=== PATIENT | female | born 1955 | race Hispanic/Latino ===

== ENCOUNTER 2016-06-05 20:09 | Observation (INO) | payer SELFPAY ==
[~2016-06-05] VITALS: Ht 157.5 cm; Wt 75.1 kg
[~2016-06-05 20:09] MED LIST: ASPI-973 PO; ATRV10T PO; CEPH500C PO; DOCU-41 PO; HYDR-4003 PO; IBUP-1827 PO; OXYC1TAB24 PO; vitamin D
[2016-06-05 20:12] VITALS: BP 125/84; PULSE 85; RESP 18; O2SAT 97
--- NOTE | 2016-06-05 21:14 | ED.REPORT ---
HPI-Headache Date of Service Jun 05, 2016 ED Provider: Waldo Still MD Patient is a 61 year old female with a history of hypertension and prior TIA who presents to the ED complaining of a left-sided headache that began 1.5 hours prior to arrival. The patient states that the pain radiates down her left chest and down to her left leg. She states that the bottom of her left foot is burning. Patient also has a small wound on her left rene that she sustained 1 month ago, with the patient reporting that it has not healed well and is causing her significant pain. She denies any numbness or weakness of her extremities. Her daughter has not noticed a new facial droop, but she does have some mild drooping of the left side of her face at baseline from prior TIA. Patient did not have residual left-sided weakness of her arm or leg from her prior TIA. Patient is able to ambulate on her own in the ED. Patient does not frequently have headaches, but that the last time she had a headache like this the patient had a TIA. Her daughter states that the patient also developed shortness of breath at onset of symptoms. Patient is not currently on any blood thinning medications, but was previously on aspirin daily. Patient is Belarusian- speaking, with her daughter assisting with interview. Nursing Notes Stated Complaint: HEADACHE, SHORT OF BREATH Chief Complaint: General Complaint Nursing Notes Reviewed: Yes Allergies: Coded Allergies: hydromorphone (Verified Adverse Reaction, Severe, "passed out", 09/23/15) Scheduled ([vitamin D]) DAILY Aspirin (Aspirin) 81 Mg Tablet 81 MG PO DAILY Atorvastatin (Lipitor) 10 Mg Tab 10 MG PO DAILY Cephalexin (Cephalexin) 500 Mg Capsule 500 MG PO QID Scheduled PRN Docusate Sodium (Colace) 100 Mg Capsule 100 MG PO BID PRN PRN For Constipation Hydrocodone-Acetaminophen 5-325 mg (Hydrocodone-Acetaminophen 5-325 mg) 1 Each Tablet 1-2 TABLET PO Q4H PRN PRN For Pain Ibuprofen (Ibuprofen) 600 Mg Tablet 600 MG PO Q6 PRN PRN For Mild Pain oxyCODONE-Acetaminophen 5-325 mg (oxyCODONE-Acetaminophen 5-325 mg) 1 Each Tablet 1 TAB PO Q4H PRN PRN For Moderate Pain General Time Seen by MD: 21:11 Chief Complaint Headache, Other (left sided chest pain) Hx Obtained From: Patient, Daughter Arrived By: Walk-in Sudden in Onset?: No Onset Occurred: 1 - 4 hours ago Symptom Duration: Since onset Quality: Painful Severity: Current: Moderate Severity: Maximum: Moderate Recent Healthcare: No recent doctor visit, No recent hospitalization Similar Sx Previous: Yes Past Medical History Past Medical History Notes: Past Medical History TIA 2013 Patient claims history of [place] years ago-not verified on review of records not evident on recent cardiac workup. Eval for Chest Pain 07/02/2015 - negative (negative nuclear stress May 2015, normal echo). Reports: GERD, Hyperlipidemia, Hypertension Past Surgical History Cystocele repair June 2015 Family History non-contributory Smoking History Former Smoker Social History Alcohol Use: Denies alcohol use Drug Use: Denies drug use Other Social History: Good social support, Local resident Ambulatory Status Independent Review of Systems Musculoskeletal: Reports: Extremity pain, Denies: Joint pain Neurologic: Reports: Headache, Denies: Numbness, Weakness Complete sys rev & neg: except as marked. Respiratory: Reports: Shortness of breath Cardiovascular: Reports: Chest pain Physical Exam Initial Vital Signs Vital Signs (First) Date Time Temp Pulse Resp B/P Pulse Ox O2 Delivery O2 Flow Rate FiO2 06/05/16 20:12 36.6 85 18 125/84 97 Room Air Initial VS: Reviewed, Vital signs normal ENT: Conjunctiva normal, No scleral icterus Extremities: Vascular intact, Neuro intact Skin: Warm, Dry, No cyanosis Psychiatric: Mood/affect normal, Behavior normal, Normal thought content General/Constitutional: Awake, Alert Head / Eyes: Atraumatic, Normocephalic, PERRL Neck: Supple, Full range of motion Neurologic: Oriented X3, No sensory deficits Focal Weakness: Positive: Lower extremity L, Negative: Lower extremity R, Upper extremity L, Upper extremity R Difficult to assess fluency of speech due to residual deficits. Longstanding left-sided facial droop, no increase per daughter. Bilateral nystagmus, no change per daughter. Otherwise cranial nerves are intact. Respiratory / Chest: Breath sounds NL, Breath sounds = bilat, No respiratory distress, No rales, No rhonchi, No wheezing Cardiovascular: Heart rate NL, Regular rhythm, Heart sounds NL, No murmurs Abdomen: Soft, Non-tender Upper Extremity / MS: Neurologic intact, Vascular intact Lower Extremity / Pelvis / MS: No deformity, Neurologic intact, Vascular intact 0.5cm scabbed nonhealing superficial ulcer to the left rene with surrounding tenderness. Interpretation & Diagnostics Lab Results Interpretation Result Diagram: 06/05/16211406/05/162114 Test 06/05/16 21:15 06/05/16 22:32 White Blood Count 5.1th/mm3 (3.8-10.1) Red Blood Count 4.19mil/mm3 (3.90-5.20) Hemoglobin 12.6g/dL (12.0-15.6) Hematocrit 37.0% (35.0-46.0) Mean Corpuscular Volume 88.3fL (81-100) Mean Corpuscular Hemoglobin 30.1pg (27.0-35.0) Mean Corpuscular Hemoglobin Concent 34.1% (32.0-37.0) Red Cell Distribution Width 12.8% (12.3-15.4) Platelet Count 288bil/L (150-400) Neutrophils (%) (Auto) 43.3% (40-74) Lymphocytes (%) (Auto) 45.1% (14-46) Monocytes (%) (Auto) 7.5% (4-12) Eosinophils (%) (Auto) 3.5% (0-5) Basophils (%) (Auto) 0.6% (0-3) D-Dimer 1.0mg/L (<0.50) Sodium Level 138mEq/L (134-144) Potassium Level 4.0mEq/L (3.5-5.2) Chloride Level 100mEq/L (97-108) Carbon Dioxide Level 23mmol/L (18-29) Blood Urea Nitrogen 11mg/dL (8-27) Creatinine 0.51mg/dL (0.57-1.00) Estimat Glomerular Filtration Rate 176mL/min (>59) Glucose Level 107mg/dL (60-99) Calcium Level 9.2mg/dL (8.5-10.1) Magnesium Level 1.9mg/dL (1.6-2.6) Total Bilirubin 0.3mg/dL (0.0-1.2) Aspartate Amino Transf (AST/SGOT) 24U/L (0-50) Alanine Aminotransferase (ALT/SGPT) 16U/L (0-32) Alkaline Phosphatase 84U/L (25-165) Troponin T 0.010ug/L (0.0-0.011) Total Protein 7.6g/dL (6.4-8.4) Albumin 4.2g/dL (3.4-5.0) Hold Perry Top Tube Received (Received) Urine Color Straw (YELLOW) Urine Appearance Clear (CLEAR,HAZY) Urine pH 7.0 (5.0-8.0) Urine Specific Foley 1.010 (1.003-1.035) Urine Protein Negativemg/dL (NEG,TRACE) Urine Glucose (UA) Negativemg/dL (NEGATIVE) Urine Ketones Negativemg/dL (NEGATIVE) Urine Occult Blood Trace (NEGATIVE) Urine Nitrite Negative (NEGATIVE) Urine Bilirubin Negative (NEGATIVE) Urine Urobilinogen Normalmg/dL (NORMAL) Urine Leukocyte Esterase Large (NEGATIVE) Urine RBC 0-2/hpf (0-2) Urine WBC 6-10/hpf (0-5) Urine Epithelial Cells Few/hpf (NONE-MOD) Urine Crystals None seen (NONE SEEN) Urine Bacteria Few/hpf (NONE-FEW) Urine Hyaline Casts None/lpf (NONE) Urine Granular Casts None seen (NONE SEEN) Urine Waxy Casts None seen (NONE SEEN) Urine Red Blood Cell Casts None seen (NONE SEEN) Urine White Blood Cell Casts None seen (NONE SEEN) Urine Mucus None seen (None Seen) Urine Trichomonas None seen (NONE SEEN) Urine Yeast None (NONE SEEN) Urinalysis Comment Urine Culture Reflexed Indicated Lab values outside NL range: no clinical significance. Lab Results Interpretation: D-dimer is elevated ECG Interpretation ECG Interpretation: Sinus rhythm, Rate 68 Abnormal R-wave progression, early transition Probable left ventricular hypertrophy Nonspecific T abnormalities, anterior leads Time: 21:28 Interpreted by: ED physician Normal ECG Interpretation: No acute ischemic changes, No change from prior ECGs (08/03/2015) X-Ray Chest Interpretation Chest Xray Interpretation: Impression: No acute cardiopulmonary process. View: Portable Interpretation / Wet Read by: Wet read ED physician CT Head Interpretation IMPRESSION: No acute intracranial disease process. Dictated by: Jenna Mcneal MD, PhD on 06/05/2016 at 21:45 Approved by: Jenna Mcneal MD, PhD on 06/05/2016 at 21:48 Study: Head CT no contrast Interpretation / Wet Read by: Interpret - Radiologist CT Chest Interpretation CONCLUSION: No evidence of pulmonary embolism or dissection. Radiologist: David Valladares MD 06/06/2016 - 12:56:51 AM PST Study type: CT pulm angiogram Interpretation / Wet Read by: Interpret - Radiologist Re-Eval/Medical Decision Med Decision/Clinical Course 21-year-old female with constellation of symptoms beginning sometime in the last 2-3 hours. Her presentation is a bit confusing because of her pre- existing neuro deficits including nystagmus, left facial droop, and some possible left-sided weakness from a previous stroke. She definitely has new left leg weakness and pain along her entire left side and a left-sided headache. CT examination is negative. Evaluation of her left-sided chest pain shows normal EKG, normal chest x-ray, elevated d-dimer but normal chest CT angiogram. She has a urinary tract infection. She was treated with Rocephin. She had previously stopped her aspirin therapy for a surgical procedure and had restarted it. She was given aspirin 160 mg here in the emergency room. Her case was discussed with Dr. Evangelista and she will be admitted to the hospitalist service. TPA was considered but the diagnosis of embolic stroke is not well-established and her symptoms are fairly minimal, so was elected not to do tPA in this case. Source of Hx: Old records Re-Evaluation/Progress #1: Time of Eval: 22:25 )( Patient Status: Condition improved Re-Evaluation/Progress Note: Informed that patient and her daughter that the CT scan was negative. No acute problems on labs, EKG, or chest x-ray. Requesting urine. Re-Evaluation/Progress #2: Time of Eval: 23:03 )( Patient Status: Condition improved Re-Evaluation/Progress Note: Rechecked the patient. She was informed that she has a UTI on x-ray. Patient states that her headache and chest pain is mildly improved. Will order additional tests. And discuss possible admission with hospitalist. Patient no longer takes an aspirin daily and was informed to start taking this again. Re-Evaluation/Progress #3: Time of Eval: 23:57 Re-Evaluation/Progress Note: D-dimer was positive and she will need a CT scan of her lungs. Re-Evaluation/Progress #4: Time of Eval: 01:45 )( Patient Status: Condition improved Re-Evaluation/Progress Note: Informed the patient and her daughter that CT was negative. Patient will be admitted to the hospital for further care and evaluation. Patient understands and agrees with this plan. All questions were addressed. Consultation : Referral / Consult Name: Rony Evangelista MD Consulted With: Hospitalist Call Returned at: 01:49 Claims Supervisor: Will see patient, Agrees with eval, Agrees with plan, Referred to other consult Note: Spoke with Dr Evangelista, hospitalist, who agrees to accept admit. Counseled Regarding: Diagnosis, Lab results, Need for admission Discharge & Departure Impression: Primary Impression: TIA (transient ischemic attack) Transient cerebral ischemia type: unspecified Qualified Code: G45.9 - Transient cerebral ischemic attack, unspecified Additional Impressions: Urinary tract infection Urinary tract infection type: acute cystitis Hematuria presence: without hematuria Qualified Code: N30.00 - Acute cystitis without hematuria Left-sided headache Left sided chest pain Disposition: ADMITTED TO HOSPITAL Discharge Condition All VS Reviewed: Yes Condition: Stable Patient Instructions: Urinary Tract Infection in Women (ED) Referrals: OTHER,PHYSICIAN (PCP) Scribe Attestation Portions of this note were transcribed by Lor Luke. I, Dr. Still personally performed the history, physical exam and medical decision-making; I reviewed and confirmed the accuracy of the information in the transcribed note. Signed by: Nila Charlton, 06/06/2016 0152 copies to: PHYSICIAN Cheko TSE Howard L MD Jun 05, 2016 21:14 Lor Luke Jun 05, 2016 21:29
[2016-06-05 21:37] LABS: BASOPHILS % (AUTO) 0.6 % (0-3); EOSINOPHILS % (AUTO) 3.5 % (0-5); MONOCYTES % (AUTO) 7.5 % (4-12); Mean Corpuscular Hemoglobin 30.1 pg (27.0-35.0); Mean Corpuscular Volume 88.3 fL (81-100); NEUTROPHILS % (AUTO) 43.3 % (40-74); Platelet Count 288 bil/L (150-400)
--- NOTE | 2016-06-05 21:49 | DRSVH ---
PROCEDURE: CT BRAIN WITHOUT CONTRAST ([id number]) INDICATIONS: left side headache and body pain, Hx stroke TECHNIQUE: Noncontrast 4.5 mm thick angled axial sections acquired from the foramen magnum to the vertex, with c oronal reformats. COMPARISON: None. FINDINGS: Image quality: Excellent. CSF spaces: Basal cisterns are patent. No extra-axial fluid collections. Ventricles are normal in size and shape. Brain: No midline shift. No intracranial masses or hemorrhage. Pereira-white matter interface is norm al. Skull and face: Chronic appearing left nasal bone fracture noted. Calvarium is intact, without susp icious lesions. Sinuses: Mucous retention cyst versus polyps are noted in the maxillary sinuses bilaterally. The ma stoids are clear. IMPRESSION: No acute intracranial disease process. Dictated by: Jenna Mcneal MD, PhD on 06/05/2016 at 21:45 Approved by: Jenna Mcneal MD, PhD on 06/05/2016 at 21:48
[2016-06-05 21:59] LABS: TROPONIN T 0.01 ug/L (0.0-0.011)
[2016-06-05 22:11] LABS: Magnesium 1.9 mg/dL (1.6-2.6)
[2016-06-05 22:56] LABS: APPEARANCE,URINE CLEAR (CLEAR,HAZY); COLOR,URINE STRAW (YELLOW)
[2016-06-05 22:57] LABS: OCCULT BLOOD,URINE TRACE (NEGATIVE); UROBILINOGEN,URINE NORMAL (NORMAL)
[2016-06-05 23:51] VITALS: BP 99/46; PULSE 62; RESP 21; O2SAT 95
[2016-06-06] VITALS (8 sets, daily range): BP systolic 103–123; BP diastolic 58–83; PULSE 59–66; RESP 16–22; O2SAT 96–98
[2016-06-06] MEDS ORDERED: cefTRIAXone Inj 2,000 MG in Dextrose 5% Minibag Plus 50 ML IV ONE (00:20)
[2016-06-06] MEDS ORDERED: 0.9% Sodium Chloride 1,000 ML IV ONE (01:50)
[2016-06-06] MEDS ORDERED: 0.9% Sodium Chloride 1,000 ML IV SCH (03:06)
[2016-06-06] MEDS ORDERED: Polyethylene Glycol (PEG) 17 Gm Powder PO PRN (03:10)
[2016-06-06] MEDS ORDERED: Labetalol 5 mg/mL 4 mL Inj IVPUSH PRN (03:10)
[2016-06-06] MEDS ORDERED: Alum-Mag Hydrox-Simeth 30 mL Suspension PO PRN (03:10)
[2016-06-06] MEDS ORDERED: Ondansetron 2 mg/mL 2 mL Inj IV PRN (03:10)
[2016-06-06 03:37] LABS: INR 0.92 ratio
--- NOTE | 2016-06-06 03:42 | PCM.HPMED ---
Subjective Date of Service Jun 06, 2016 Primary Provider: Admitting Physician: [facility] Attending Physician: Admit Status: From the Emergency Department Chief Complaint: Head ache and SOB History of Present Illness: This is a pleasant 61 Y/O Congolese-speaking F with a history of HTN and prior TIA (no current blood thinner or anticoagulant medication) who presented to the ED complaining of a sharp 6-7 out of 10 left-sided headache pain onset late last night 06/05/2016. Pain reportedly radiates down her left chest and down to her left leg. Associated symptoms include burning sensation on plantar surface of left foot. Associated symptoms include nausea, chest pressure rated 6-7 out of 10, and shortness of breath. Patient also has a small nonhealing wound on her left rene that she sustained 1 month ago which causes significant pain. Patient daughter states that she relates her leg pain to the small wound on the anterior rene. Patient reports residual left-sided upper/lower extremity weakness from prior TIA. Her daughter has not noticed worsening of patient's mild left-sided facial droop which is her baseline from prior TIA. Patient was able to ambulate on her own in the ED. Patient denies frequent headaches. However last time she had a headache like this the patient had a TIA. Her daughter states that the patient also developed shortness of breath at onset of symptoms. Patient denies fever chills vomiting sweats sinus pressure cough sore throat abdominal pain constipation, dysuria. Vital signs in ED temperature 36.6, pulse 85, blood pressure 125/84, respirations 18, 97% on room air. Vitals: Pulse 62, blood pressure 99/46, 95% on room air, respirations 21. Patient is found to have urinary tract infection in ED and was started on ceftriaxone CT of head was done and showed no acute intracranial process. CT chest was done and showed no evidence of pulmonary embolism or dissection. Chest x-ray was done and showed no acute cardiopulmonary process. Hemogram: within normal limits Chemistry panel: Within normal limits, troponin 0.00 D-dimer 1.0 high Review of Systems: Comprehensive review of systems was conducted and found to be negative except for what is mentioned in the history of present illness. Allergies Coded Allergies: hydromorphone (Verified Adverse Reaction, Severe, "passed out", 09/23/15) Home Medications Patient currently is not on any medications. [facility] TIA 2013 Patient claims history of [place] years ago-not verified on review of records not evident on recent cardiac workup. Eval for Chest Pain 07/02/2015 - negative (negative nuclear stress May 2015, normal echo). Reports: GERD, Hyperlipidemia, Hypertension Surgical History Cystocele repair June 2015 Family History Noncontributory No history of stroke, diabetes, coronary artery disease, or cancer Social History Hx Alcohol Use: Yes Hx Substance Use: No Hx Tobacco Use: Yes Smoking Status: Former Smoker Living Arrangement: with Family Exam Vital Signs Vital Sign - Last Date Time Temp Pulse Resp B/P Pulse Ox O2 Delivery O2 Flow Rate FiO2 06/05/16 23:51 62 21 99/46 95 Room Air 06/05/16 20:12 36.6 Intake and Output 06/05/16 06/05/16 06/06/16 Cumulative From/Thru 15:00 23:00 07:00 06/06/16 01:58 - 06/06/16 01:58 Intake Total 1000 ml 1000 ml Balance 1000 ml 1000 ml Intake IV Total 1000 ml 1000 ml Lab and Diagnostics Result Diagram: 06/05/16211406/05/162114 X-Rays, CTs and MRIs Chest Xray Interpretation: Impression: No acute cardiopulmonary process. View: Portable Interpretation / Wet Read by: Wet read ED physician CT Head Interpretation IMPRESSION: No acute intracranial disease process. Dictated by: Jenna Mcneal MD, PhD on 06/05/2016 at 21:45 Approved by: Jenna Mcneal MD, PhD on 06/05/2016 at 21:48 Study: Head CT no contrast Interpretation / Wet Read by: Interpret - Radiologist CT Chest Interpretation CONCLUSION: No evidence of pulmonary embolism or dissection. Radiologist: David Valladares MD 06/06/2016 - 12:56:51 AM PST Study type: CT pulm angiogram Interpretation / Wet Read by: Interpret - Radiologist Assessment & Plan This is a pleasant 61 Y/O Congolese-speaking F with a history of HTN and prior TIA who presented to the ED complaining of a left-sided headache late last night 06/05/2016. Pain reportedly radiates down her left chest and down to her left leg. Associated symptoms include burning sensation on plantar surface of left foot. Patient was admitted for TIA rule out. # Acute TIA, Present on Admission, active -CT Head Non contrast negative for acute intracranial process -EKG sinus rhythm rate of 68, abnormal R-wave progression, early transition probably left ventricular hypertrophy, nonspecific T-wave abnormalities anterior leads no apparent acute ischemic changes noted from prior ECG on 2015 -Thrombolysis (Altaplase) patient was not a candidate. -Admit for TIA/stroke rule out and observation -Aspirin 325 mg daily + Plavix 300 mg Loading dose then 75 mg daily -Start Statin Tx -Vital signs + Neuro checks Q 15 min for 2 hr, then Q 30 min for 6 hr, then Q 60 min up to 24 hours. -MRA Brain to follow to R/O hemorrhagic conversion. -Continuous Cardiac Monitoring -IV fluids if needed to manage any volume depletion/electrolytes -Permissive HTN -BP goal if not on thrombolysis is to treat only if > 220 systolic or 120 Diastolic -NIHSS score was difficult to assess on patient -Elevate Head of Bed 30 degrees #Acute chest pain, present admission, active -Chest X-ray no acute cardiopulmonary process -CT chest: Showed no evidence of pulmonary embolism or dissection -EKG sinus rhythm rate of 68, abnormal R-wave progression, early transition probably left ventricular hypertrophy, nonspecific T-wave abnormalities anterior leads no apparent acute ischemic changes noted from prior ECG on 2015 -Troponin 0.010 -We will continue to monitor # Urinary tract infection, was on admission, active -Patient denies dysuria -UA positive for trace blood leukocyte esterase large, urine bacteria few -Urine culture pending -1 g ceftriaxone in ED -We will continue ceftriaxone Chronic problems GERD, -IV Pepcid Hyperlipidemia, -Start atorvastatin 40 mg Hypertension -Permissive of hypertension given TIA Disposition: Admitted to in patient service with expected length of stay greater than 2 days, secondary to severity of presenting symptoms, treatment plan, complexity of clinical work up, and risk of adverse events. CODE STATUS: Full code PCP: William Greene DVT/PE prophylaxis: Subcutaneous heparin Pain Evaluation: Adequate Pain Control VTE Prophylaxis: Sub-Q Heparin (Unfractionated) Resuscitation Status: CPR: Attempt Resuscitation Attending Statement The patient was seen and examined together with Dr. Trejo on 06/06 and I agree with the history, exam and plan as outlined in the note above. Rudy Trejo DO Jun 06, 2016 02:31 Rony Evangelista MD Jun 06, 2016 04:32
--- NOTE | 2016-06-06 05:41 | NUR ---
Admit to room 3016 with c/o left sided pain and chest pressure, TIA, UTI. 7/10 pain left arm/leg/head/chest. VSS temp 36.4 bp 106/65 p 62 98% O2 SAT on RA. Welsh speaking only. Used [employer] on stick for admission and family available to translate in room. Currently NPO with POC on whiteboard and oriented to room.
--- NOTE | 2016-06-06 05:45 | NUR ---
Med Rec currently not taking any medications. Verified allergy and no current pharmacy.
[2016-06-06 07:51] LABS: Mean Corpuscular Hemoglobin 29.8 pg (27.0-35.0)
[2016-06-06] MEDS: Heparin 5,000 Unit/mL Inj SUBQ SCH ×2 (08:05→16:27)
--- NOTE | 2016-06-06 08:28 | DRSVH ---
PROCEDURE: X-RAY CHEST ONE VIEW, PORTABLE ([id number]) INDICATIONS: chest pain TECHNIQUE: One view of the chest was acquired. COMPARISON: 08/03/2015 FINDINGS: Surgical changes and devices: None. Lungs and pleura: No pleural effusions or pneumothorax. Lungs are clear. Mediastinum: Mediastinal contours appear normal. Heart size is normal. Bones and chest wall: No suspicious bony lesions. Overlying soft tissues appear unremarkable. IMPRESSION: No acute cardiopulmonary abnormality Dictated by: Kem Lantigua M.D. on 06/06/2016 at 8:27 Approved by: Kem Lantigua M.D. on 06/06/2016 at 8:28
[2016-06-06] MEDS ORDERED: Famotidine Inj 20 MG in IV Premix 1 EACH IV SCH (08:30)
--- NOTE | 2016-06-06 09:32 | DRSVH ---
PROCEDURE: CT ANGIO CHEST PULMONARY EMBOLISM ([id number]) INDICATIONS: left chest pain, elev dimer TECHNIQUE: After the administration of intravenous contrast, 2 mm thick sections acquired from the pulmonary api iglesia to the posterior costophrenic angles. 3-dimensional maximum intensity projection (MIP) coronal a nd sagittal reformats were then acquired through the thorax. For radiation dose reduction, the follo wing was used: automated exposure control, adjustment of mA and/or kV according to patient size. COMPARISON: None. FINDINGS: Image quality: Excellent. Pulmonary arteries: Pulmonary arteries are normal in size, and demonstrate no intraluminal filling d efects to suggest central pulmonary embolism. Lungs and pleura: Atelectasis noted in the deep inner portion of the lung bases. No pleural effusions or pneumothorax. Central and peripheral airways are patent. Mediastinum: Heart size is normal, without pericardial effusion. No mediastinal or hilar adenopathy . Thoracic aorta is normal in caliber and enhancement. Esophagus is normal in caliber. Small hiatal hernia is noted. Bones and chest wall: No suspicious bony lesions. Ribs and thoracic spine appear intact throughout. Thyroid gland is within normal limits. No axillary or supraclavicular adenopathy. Abdomen: Visualized upper abdominal solid organs appear normal in the early arterial phase of enhanc ement. IMPRESSION: 1. No pulmonary embolus. 2. Small hiatal hernia. Dictated by: Jenna Mcneal MD, PhD on 06/06/2016 at 9:26 Approved by: Jenna Mcneal MD, PhD on 06/06/2016 at 9:30
--- NOTE | 2016-06-06 11:00 | NUR ---
Social Work: Brief Note Data: Pt is a 61 y/o female admitted for TIA, UTI. Pt's PCP is Supriya, pt's insurance is self pay. DOLL WIG HACKLER met with pt with casino enforcement agent and confirmed self pay status. Pt accepted the [employer] Application in both Serbian and Czech so that her daughter can assist her with filling it out. DOLL WIG HACKLER spoke with PT who states that pt will likely either need SNF or 24/7 care at d/c. DOLL WIG HACKLER will meet with pt to discussed d/c planning later today as she is currently working with [facility] DOLL WIG HACKLER will continue to follow. Assessment: Pt who is independent at baseline. Plan: Pt will either d/c home with assistance from family or private pay caregiving or private pay SNF. DOLL WIG HACKLER will continue to follow. ROGELIO Goldman
--- NOTE | 2016-06-06 11:07 | DRSVH ---
PROCEDURE: MRI STROKE PROTOCOL ([id number]) Pre- and post-contrast brain MRI, non-contrast brain MR angiogram, pre- and postcontrast neck MR phu ogram INDICATIONS: headache, left sided weakness TECHNIQUE: Brain: Noncontrast axial T1 spin echo, axial T2 fast spin echo, sagittal and axial FLAIR, coronal T2 fast spin echo, axial gradient echo, axial diffusion and ADC through the brain. After the administr ation of contrast, axial 3D VIBE of the cranial vasculature and brain. Brain MRA: Non-contrast 3-D time of flight MR angiogram, with multiple zxmppaj-huxpjzgft-tphvwvkhss (MIP) reformats performed. Neck MRA: Axial and sagittal TruFISP through the neck. Coronal dynamic MR angiogram during administ ration of contrast in the arterial and venous phases, with 3-dimenstional sbndkcx-myrepifgx-mzenscbdv n (MIP) reformats constructed from subtraction images. COMPARISON: None. FINDINGS: Image quality: Excellent. BRAIN: CSF spaces: Ventricles are normal in size and shape. Basal cisterns are patent. No extra-axial flu id collections. Brain: No intracranial bleeds or mass effects. Diffuse bilateral white matter signal changes are pre sent, statistically representing chronic microvascular ischemic disease. Pereira-white matter interface is normal. Diffusion weighted images show no acute ischemic insults. Brainstem appears normal. Nor mal intravascular flow voids are present. No abnormal intracranial enhancement. Skull and face: Calvarial marrow signal is normal. Orbits appear normal. Sinuses: Mild to moderate bilateral mucus retention cysts or polyps within the maxillary sinuses.. BRAIN MR ANGIOGRAM: Anterior circulation: Intracranial internal carotid arteries are normal in size and enhancement. Th e flow within the paired anterior cerebral arteries is normal and symmetric. The flow within the mid dle cerebral arteries is normal and symmetric. The anterior communicating artery is seen. No stenos es, occlusions, or aneurysms. Posterior circulation: The visualized portions of the vertebral arteries demonstrate normal caliber, and join to form a normal appearing basilar artery. The flow within the posterior cerebral arteries is normal and symmetric. No stenoses, occlusions, or aneurysms. NECK MR ANGIOGRAM: Carotids: Great vessels demonstrate a conventional anatomy as they arise from the aortic arch. The origins of the common carotid arteries appear patent. There is a tortuous right internal carotid nelson ry. The bifurcation regions appear normal bilaterally. The internal carotid arteries demonstrate nor mal course and caliber. Posterior circulation: The origins of the vertebral arteries appear patent. More superior portions of both vertebral arteries demonstrate normal course and caliber, and join to form a normal appearing basilar artery. Miscellaneous: Subclavian arteries appear patent. Pre-contrast images through the neck show no soft tissue abnormalities. IMPRESSION: BRAIN MRI: No evidence of acute ischemia. Mild/moderate bilateral maxillary sinus disease. Few scattered mild white matter signal changes statistically representing age-related chronic microva scular ischemic disease. BRAIN MR ANGIOGRAM: Negative examination NECK MR ANGIOGRAM: No focal ICA stenosis. The estimate of stenosis included in the report of the imaging study was calculated using the NASCET method Dictated by: Elie Pelaez M.D. on 06/06/2016 at 10:22 Approved by: Elie Pelaez M.D. on 06/06/2016 at 11:07
--- NOTE | 2016-06-06 11:14 | NUR ---
Evaluation completed. Please go to "Notes" then click on "Assessments and Notes" (bottom left corner of screen). Then select appropriate discipline tab on top of screen.
--- NOTE | 2016-06-06 12:46 | NUR ---
Social Work: Readiness for d/c Data: Pt is on day 1 of hospitalization. EMR reviewed. states pt likely to d/c today. PT was initially thinking SNF may be appropriate but upon further examination they are recommending HH and a walker at this time. VP [facility] GENERAL COUNSEL met with pt to discuss d/c planning. Pt states that she lives with her teenage grandson on the second floor of an apartment building where she uses a cane at times. She gets up the stairs fine while holding the railing. Pt states that she does not drive but takes the bus when needed or walks. She states that she has no hx of HH or SNF, no LTC or VA benefits. She states she does not have a DPOA and declined information. Pt states her daughter can transport her home when time for d/c. VP [facility] GENERAL COUNSEL explained PT recommendations of HH and a walker. VP & GENERAL COUNSEL explained that HH would be private pay cost, pt declined this. VP & GENERAL COUNSEL asked if pt can afford a front wheel walker, estimated to be about $100 to own. Pt states she cannot. VP & GENERAL COUNSEL gave pt information for the [employer], their phone number and hours. Pt states she will ask her daughter to assist her with this. Assessment: Pt who is independent at baseline. Plan: Pt will d/c home via POV with daughter, likely today. Pt declining HH and accepted information to get a loaned FWW. No further d/c planning needs at this time. [facility] GENERAL COUNSEL will continue to follow if needs arise. ROGELIO Goldman
--- NOTE | 2016-06-06 15:29 | NUR ---
Pt. screened. No OT needs. DC order.
--- NOTE | 2016-06-06 16:36 | DRSVH ---
PROCEDURE: MRI LUMBAR SPINE WITHOUT CONTRAST ([id number]) INDICATIONS: Back pain, left leg numbness TECHNIQUE: Noncontrast sagittal T1 spin echo and T2 fast echo, sagittal STIR, axial T1 and T2 fast spin echo thr ough the lumbar spine. In cases with scoliosis, additional coronal T2 fast spin echo may be performe d. COMPARISON: None. FINDINGS: Image quality: Excellent. Alignment and Curvature: There is grade I L5 on S1 anterolisthesis. There is otherwise normal bony a lignment. Bone Marrow: Marrow is of normal overall signal. No acute vertebral body compression fractures. Spinal Cord: Conus medullaris terminates at the T12 level. Visualized cord demonstrates normal sign al and size. Paraspinous Soft Tissues: No paravertebral masses. Small Tarlov cysts are present at L2-3. L1-L2: Mild disc desiccation and height loss. Broad-based disc bulge. No canal stenosis. No neural fo raminal narrowing. L2-L3: Broad-based disc bulge. Mild disc desiccation and height loss. No canal stenosis. Mild facet a nd ligamentum flavum hypertrophy. No foraminal stenosis. L3-L4: Mild disc desiccation and height loss. Broad-based disc bulge. Mild facet and ligamentum flavu m hypertrophy. No canal stenosis. No neural foraminal stenosis. L4-L5: Disc desiccation and height loss. Broad-based disc bulge. Mild facet and ligamentum flavum hyp ertrophy. No canal stenosis. No foraminal narrowing. L5-S1: Anterolisthesis. Moderate disc desiccation and height loss. Severe facet and ligamentum flavum hypertrophy. No canal stenosis. Moderate bilateral foraminal narrowing with flattening of the bilate ral exiting nerve roots. These findings are more severe on the left. IMPRESSION: 1. Disc desiccation and height loss throughout the lumbar spine mild to moderate in degree. 2. No canal stenosis or disc herniation. 3. Moderate bilateral L5-S1 foraminal narrowing with flattening of the exiting nerve roots. These fin dings are more severe on the left on the right. It is unclear whether this may be contributory to the patient's left leg numbness. 4. L5-S1 spondylolisthesis. Dictated by: Aida Hu M.D. on 06/06/2016 at 16:27 Approved by: Aida Hu M.D. on 06/06/2016 at 16:34
[2016-06-06] MEDS ORDERED: ATOR20TA65 PO (16:54)
--- NOTE | 2016-06-06 17:02 | PCM.DIMED ---
Discharge Instructions Date of Service Jun 06, 2016 Dates of Hospitalization Jun 06, 2016 at 02:06 Discharge Diagnosis Discharge Diagnosis # Acute transient left-sided headache of unclear etiology, present on admission. Resolved. # Acute on chronic pain, numbness and paresthesia of left leg, present on admission. Improved. - Unclear etiology but possibly due lumbar spine stenosis vs less likely transient ischemic attack (TIA). # Chronic hyperlipidemia, present on admission - Cholesterol 203, LDL 142 # Acute chest pain, reproducible with palpation, present admission, improved. - Likely musculoskeletal in origin but need to followup with primary care provider as soon as possible for consideration of echocardiogram which you deferred during this hospitalization. # Urinary tract infection, present prior to admission, active - Followup with primary care provider for final culture result # Hypertension. chronic. stable Diet Low fat, Low Sodium, Heart Healthy Activity No restrictions Call your provider Fever or Chills, Shortness of breath, Bleeding, Chest pain, Weakness (unilateral ) Patient Instructions Seek immediate medical attention if any new or worsening signs or symptoms occur. Follow-up plan 1. Followup with your primary care provider in 1-5 days Follow-up Provider: [facility] Raymond Lynch Jun 06, 2016 17:02
--- NOTE | 2016-06-06 17:47 | NUR ---
Discharge Patient given discharge orders. Patient given medication list with written and verbal explanation when next dose is due. Patient given follow up information. Patient given hard copy of script. Patient left with all belongings. Family in room at time of discharge. Patient wheeled to main entrance in wheelchair. IV's removed fully intact and asymptomatic.
--- NOTE | 2016-06-06 19:35 | PCM.DC.MED ---
Discharge Summary Date of Service Jun 06, 2016 Dates of Hospitalization Date of Hospital Admission Jun 06, 2016 at 02:06 Date of Discharge: Jun 06, 2016 Providers: Admitting Physician: Rony Evangelista MD [facility] Rony Evangelista MD Diagnosis at Time of Discharge Diagnosis at Time of Discharge # Acute transient left-sided headache of unclear etiology, present on admission. Resolved. # Acute on chronic pain, numbness and paresthesia of left leg, present on admission. Improved. - Unclear etiology but possibly due lumbar spine stenosis vs less likely transient ischemic attack (TIA). # Chronic hyperlipidemia, present on admission - Cholesterol 203, LDL 142 # Acute chest pain, reproducible with palpation, present admission, improved. - Likely musculoskeletal in origin but need to followup with primary care provider as soon as possible for consideration of echocardiogram which you deferred during this hospitalization. # Urinary tract infection, present prior to admission, active - Followup with primary care provider for final culture result # Hypertension. chronic. stable Procedures XRay, CTs & MRIs Date of Service: 06/06/16 1150 PROCEDURE: MRI LUMBAR SPINE WITHOUT CONTRAST ([id number]) IMPRESSION: 1. Disc desiccation and height loss throughout the lumbar spine mild to moderate in degree. 2. No canal stenosis or disc herniation. 3. Moderate bilateral L5-S1 foraminal narrowing with flattening of the exiting nerve roots. These findings are more severe on the left on the right. It is unclear whether this may be contributory to the patient's left leg numbness. 4. L5-S1 spondylolisthesis. Dictated by: Aida Hu M.D. on 06/06/2016 at 16:27 Approved by: Aida Hu M.D. on 06/06/2016 at 16:34 Date of Service: 06/06/16 0726 PROCEDURE: MRI STROKE PROTOCOL ([id number]) Pre- and post-contrast brain MRI, non-contrast brain MR angiogram, pre- and postcontrast neck MR angiogram IMPRESSION: BRAIN MRI: No evidence of acute ischemia. Mild/moderate bilateral maxillary sinus disease. Few scattered mild white matter signal changes statistically representing age- related chronic microvascular ischemic disease. BRAIN MR ANGIOGRAM: Negative examination NECK MR ANGIOGRAM: No focal ICA stenosis. The estimate of stenosis included in the report of the imaging study was calculated using the NASCET method Dictated by: Elie Pelaez M.D. on 06/06/2016 at 10:22 Approved by: Elie Pelaez M.D. on 06/06/2016 at 11:07 Date of Service: 06/06/16 0000 PROCEDURE: CT ANGIO CHEST PULMONARY EMBOLISM ([id number]) IMPRESSION: 1. No pulmonary embolus. 2. Small hiatal hernia. Dictated by: Jenna Mcneal MD, PhD on 06/06/2016 at 9:26 Approved by: Jenna Mcneal MD, PhD on 06/06/2016 at 9:30 Date of Service: 06/05/162122 PROCEDURE: CT BRAIN WITHOUT CONTRAST ([id number]) IMPRESSION: No acute intracranial disease process. Dictated by: Jenna Mcneal MD, PhD on 06/05/2016 at 21:45 Approved by: Jenna Mcneal MD, PhD on 06/05/2016 at 21:48 Brief History This is a pleasant 61 Y/O Latvian-speaking F with a history of HTN and prior TIA (no current blood thinner or anticoagulant medication) who presented to the ED complaining of a sharp 6-7 out of 10 left-sided headache pain onset late last night 06/05/2016. Pain reportedly radiates down her left chest and down to her left leg. Associated symptoms include burning sensation on plantar surface of left foot. Associated symptoms include nausea, chest pressure rated 6-7 out of 10, and shortness of breath. Patient also has a small nonhealing wound on her left rene that she sustained 1 month ago which causes significant pain. Patient daughter states that she relates her leg pain to the small wound on the anterior rene. Patient reports residual left-sided upper/lower extremity weakness from prior TIA. Her daughter has not noticed worsening of patient's mild left-sided facial droop which is her baseline from prior TIA. Patient was able to ambulate on her own in the ED. Patient denies frequent headaches. However last time she had a headache like this the patient had a TIA. Her daughter states that the patient also developed shortness of breath at onset of symptoms. Patient denies fever chills vomiting sweats sinus pressure cough sore throat abdominal pain constipation, dysuria. Vital signs in ED temperature 36.6, pulse 85, blood pressure 125/84, respirations 18, 97% on room air. Vitals: Pulse 62, blood pressure 99/46, 95% on room air, respirations 21. Patient is found to have urinary tract infection in ED and was started on ceftriaxone CT of head was done and showed no acute intracranial process. CT chest was done and showed no evidence of pulmonary embolism or dissection. Chest x-ray was done and showed no acute cardiopulmonary process. Hemogram: within normal limits Chemistry panel: Within normal limits, troponin 0.00 D-dimer 1.0 high Hospital Course # Acute transient left-sided headache of unclear etiology, present on admission. Resolved. - workup including CT brain and MRI negative. # Acute on chronic pain, numbness and paresthesia of left leg, present on admission. Improved. - Unclear etiology but possibly due lumbar spine stenosis vs less likely transient ischemic attack (TIA). - brain imaging negative as noted above - Lumbar spine MRI without obvious cause although suggest lumbar spine stenosis - Echocardiogram was ordered but patient wishes to have this study done as outpatient and does not want to stay over night for this test. will defer to PCP as outpatient. # Chronic hyperlipidemia, present on admission - Cholesterol 203, LDL 142 - will increase Lipitor dose from 10 to 20 on discharge # Acute chest pain, reproducible with palpation, present admission, improved. - Likely musculoskeletal in origin but need to followup with primary care provider as soon as possible for consideration of echocardiogram which you deferred during this hospitalization. # Urinary tract infection, present prior to admission, active - Followup with primary care provider for final culture result # Hypertension. chronic. stable by day of d/c lungs CTA bilateral. Neuro exam fairly non focal with CN II-XII grossly intact Exam Vital Signs (Last) Date Time Temp Pulse Resp B/P Pulse Ox O2 Delivery O2 Flow Rate FiO2 06/06/16 14:01 36.2 59 20 103/67 97 Room Air Test 06/05/16 21:15 06/05/16 22:32 06/06/16 07:37 Neutrophils (%) (Auto) 43.3% (40-74) Lymphocytes (%) (Auto) 45.1% (14-46) Monocytes (%) (Auto) 7.5% (4-12) Eosinophils (%) (Auto) 3.5% (0-5) Basophils (%) (Auto) 0.6% (0-3) Erythrocyte Sedimentation Rate 31mm/hr (0-40) Prothrombin Time 9.8sec (8.1-12.5) Prothromb Time International Ratio 0.92ratio D-Dimer 1.0mg/L (<0.50) Magnesium Level 2.0mg/dL (1.6-2.6) Total Bilirubin 0.3mg/dL (0.0-1.2) Aspartate Amino Transf (AST/SGOT) 24U/L (0-50) Alanine Aminotransferase (ALT/SGPT) 16U/L (0-32) Alkaline Phosphatase 84U/L (25-165) Troponin T 0.010ug/L (0.0-0.011) Total Protein 7.6g/dL (6.4-8.4) Albumin 4.2g/dL (3.4-5.0) Hold Perry Top Tube Received (Received) Urine Color Straw (YELLOW) Urine Appearance Clear (CLEAR,HAZY) Urine pH 7.0 (5.0-8.0) Urine Specific [place] 1.010 (1.003-1.035) Urine Protein Negativemg/dL (NEG,TRACE) Urine Glucose (UA) Negativemg/dL (NEGATIVE) Urine Ketones Negativemg/dL (NEGATIVE) Urine Occult Blood Trace (NEGATIVE) Urine Nitrite Negative (NEGATIVE) Urine Bilirubin Negative (NEGATIVE) Urine Urobilinogen Normalmg/dL (NORMAL) Urine Leukocyte Esterase Large (NEGATIVE) Urine RBC 0-2/hpf (0-2) Urine WBC 6-10/hpf (0-5) Urine Epithelial Cells Few/hpf (NONE-MOD) Urine Crystals None seen (NONE SEEN) Urine Bacteria Few/hpf (NONE-FEW) Urine Hyaline Casts None/lpf (NONE) Urine Granular Casts None seen (NONE SEEN) Urine Waxy Casts None seen (NONE SEEN) Urine Red Blood Cell Casts None seen (NONE SEEN) Urine White Blood Cell Casts None seen (NONE SEEN) Urine Mucus None seen (None Seen) Urine Trichomonas None seen (NONE SEEN) Urine Yeast None (NONE SEEN) Urinalysis Comment Urine Culture Reflexed Indicated White Blood Count 3.5th/mm3 (3.8-10.1) Red Blood Count 3.72mil/mm3 (3.90-5.20) Hemoglobin 11.1g/dL (12.0-15.6) Hematocrit 33.1% (35.0-46.0) Mean Corpuscular Volume 89.0fL (81-100) Mean Corpuscular Hemoglobin 29.8pg (27.0-35.0) Mean Corpuscular Hemoglobin Concent 33.5% (32.0-37.0) Red Cell Distribution Width 13.0% (12.3-15.4) Platelet Count 242bil/L (150-400) Sodium Level 142mEq/L (134-144) Potassium Level 4.0mEq/L (3.5-5.2) Chloride Level 107mEq/L (97-108) Carbon Dioxide Level 23mmol/L (18-29) Blood Urea Nitrogen 8mg/dL (8-27) Creatinine 0.48mg/dL (0.57-1.00) Estimat Glomerular Filtration Rate 188mL/min (>59) Glucose Level 98mg/dL (60-99) Calcium Level 8.2mg/dL (8.5-10.1) Triglycerides Level 158mg/dL (0-149) Cholesterol Level 203mg/dL (100-199) LDL Cholesterol, Calculated 142.400mg/dL (0-99) VLDL Cholesterol 31.600mg/dL HDL Cholesterol 29mg/dL (>39) Cholesterol/HDL Ratio 7.00 (0.0-4.4) Discharge Medications Discharge Medications ([vitamin D]) DAILY (Reported) Aspirin (Aspirin) 81 Mg Tablet 81 MG PO DAILY (Reported) Atorvastatin Calcium (Atorvastatin Calcium) 20 Mg Tablet 20 MG PO HS Prescribed by: RAYMOND DEJESUS MD Cephalexin (Cephalexin) 500 Mg Capsule 500 MG PO QID Prescribed by: SHANTE BLOOD MD As needed Docusate Sodium (Colace) 100 Mg Capsule 100 MG PO BID PRN PRN For Constipation Prescribed by: KOKI JOSHUA MD Hydrocodone-Acetaminophen 5-325 mg (Hydrocodone-Acetaminophen 5-325 mg) 1 Each Tablet 1-2 TABLET PO Q4H PRN PRN For Pain Prescribed by: SHANTE BLOOD MD Ibuprofen (Ibuprofen) 600 Mg Tablet 600 MG PO Q6 PRN PRN For Mild Pain Prescribed by: KOKI JOSHUA MD oxyCODONE-Acetaminophen 5-325 mg (oxyCODONE-Acetaminophen 5-325 mg) 1 Each Tablet 1 TAB PO Q4H PRN PRN For Moderate Pain Prescribed by: KOKI JOSHUA MD Followup Plan Disposition: Home Follow-up plan 1. Followup with your primary care provider in 1-5 days Discharge Diet: Low fat, Low Sodium, Heart Healthy Discharge Activity: No restrictions Patient Instructions Seek immediate medical attention if any new or worsening signs or symptoms occur. Follow-up Provider: [facility] Time spent 35 min copies to: [facility] Raymond Dejesus Jun 06, 2016 19:35
[2016-06-06] MEDS ORDERED: cefTRIAXone Inj 1,000 MG in Dextrose 5% Minibag Plus 50 ML IV SCH (23:30)
== END 2016-06-06 17:54 | disposition home or self-care (01) ==
LOC: SED 20:09 → MPC 06-06 02:06
PROVIDERS: ADMIT Hospitalist; ATTEND Hospitalist
DX: R51 Headache (principal); G89.29 Other chronic pain; R20.0 Anesthesia of skin; E78.5 Hyperlipidemia, unspecified; R07.9 Chest pain, unspecified; M54.9 Dorsalgia, unspecified; N39.0 Urinary tract infection, site not specified; S81.802A Unspecified open wound, left lower leg, initial encounter; I10 Essential (primary) hypertension; K21.9 Gastro-esophageal reflux disease without esophagitis; Z86.73 Personal history of transient ischemic attack (TIA), and cerebral infarction without residual deficits; Z79.82 Long term (current) use of aspirin; Z87.891 Personal history of nicotine dependence
CPT/HCPCS: 36415; 70450; 70549; 70553; 71010; 71275; 72148; 80048; 80053; 80061; 81000; 83036; 83735; 84484; 85025; 85027; 85379; 85610; 85651; 87086; 87088; 92610; 93005; 96361; 96365; 96375; 96376; 97162; 99285; A9585; G0378; J0696; J1644; J2270; J2405; J3490; J7030; Q9967